=== PATIENT | female | born 1975 | race Two or more races ===

== ENCOUNTER 2025-01-04 17:41 | Emergency (ER) | payer OTHER ==
[~2025-01-04] VITALS: Ht 180.3 cm; Wt 147.9 kg
[2025-01-04] MEDS ORDERED: SYNTHROID150 MCG (18:46)
[2025-01-04] MEDS ORDERED: NEURONTIN300 MG PO (18:47)
[2025-01-04] MEDS ORDERED: IRBESARTAN150 MG PO (18:47)
[2025-01-04] MEDS ORDERED: BUPROPION XL450 MG (18:48)
[2025-01-04] MEDS ORDERED: METOCLOPRAMIDE HCL 5 MG/ML VIAL IM STA (21:20)
[2025-01-04] MEDS ORDERED: FAMOtidine 10 MG/ML (4ML VIAL) IV PUSH STA (21:22)
== END 2025-01-04 22:24 | disposition home or self-care (01) ==
LOC: ER 17:54
DX: K21.9 Gastro-esophageal reflux disease without esophagitis (principal); Z98.0 Intestinal bypass and anastomosis status; K30 Functional dyspepsia; Z88.2 Allergy status to sulfonamides